=== PATIENT | female | born 1950 | race Caucasian/White ===

== ENCOUNTER 2021-06-25 10:30 | Emergency (ER) | payer SELFPAY ==
[~2021-06-25] VITALS: Ht 162.6 cm; Wt 59.0 kg
[2021-06-25 11:22] LABS: BASOPHILS % 0.6 % (0.0-2.0); EOSINOPHILS % 1.6 % (0.0-5.0); HEMATOCRIT. 40.6 % (36.0-48.0); HEMOGLOBIN. 13.8 g/dL (12.0-16.0); LYMPHOCYTES % 41.3 % (20.0-50.0); MEAN CORPUSCULAR HEMOGLOBIN 32.6 pg (28.0-32.0); MEAN CORPUSCULAR VOLUME 95.6 fL (81.0-99.0); MEAN PLATELET VOLUME 8.4 fl (7.4-10.4); MONOCYTES % 5.8 % (2.0-8.0); NEUTROPHILS % 50.7 % (40.0-76.0); PLATELET 369 x1000/uL (130-400); RED BLOOD CELL COUNT 4.25 mill/uL (4.2-5.4); RED CELL DISTRIBUTION WIDTH 13.7 % (11.6-14.6)
[2021-06-25 13:00] VITALS: BP 151/61
== END 2021-06-25 13:02 | disposition home or self-care (01) ==
LOC: ER 10:43
DX: R42 Dizziness and giddiness (principal); R29.818 Other symptoms and signs involving the nervous system; R73.9 Hyperglycemia, unspecified; E87.6 Hypokalemia
CPT/HCPCS: 36415; 80048; 85025; 93005; 99284